=== PATIENT | female | born 1980 | race Caucasian/White ===

== ENCOUNTER 2017-02-03 21:00 | Emergency (ER) | payer OTHER ==
[~2017-02-03] VITALS: Ht 170.2 cm; Wt 110.0 kg
[2017-02-03 22:48] LABS: HEMATOCRIT 39.2 % (36.0-46.0); MCH 29.8 PG (29.0-34.0); MCHC 33.4 G/DL (30.0-36.0); MCV 89.3 FL (83-99); MEAN PLAT.VOLUME 10.5 uM^3 (9.5-12.4); PLATELET COUNT 298 K/uL (156-360); RBC DIS.WIDTH-SD 42.8 % (39-53); RED BLOOD COUNT 4.39 M/uL (3.80-5.20); WHITE BLOOD COUNT 16.9 K/uL (4.1-10.2)
[2017-02-03 22:55] LABS: CHLORIDE 105 mEq/L (99-109); POTASSIUM 3.8 mEq/L (3.7-5.4); SODIUM 135 mEq/L (136-147)
[2017-02-03 22:57] LABS: GLUCOSE 109 mg/dL (70-99)
[2017-02-03 22:59] LABS: ANION GAP 9 MEQ/L (2-14)
[2017-02-03 23:00] LABS: SERUM ETHYL ALCOHOL < 10 mg/dL
[2017-02-03 23:01] LABS: GFR ESTIMATE (CALCULATED) > 59 mL/min/
[2017-02-03 23:02] LABS: UREA NITROGEN (BUN) 10 mg/dL (9-23)
[2017-02-03 23:53] LABS: ADD MIUA? YES; BILIRUBIN NEGATIVE; BLOOD MODERATE; COLOR COLORLESS ((YELLOW)); GLUCOSE (STRIP) NEGATIVE; KETONES NEGATIVE; LEUKOCYTES NEGATIVE; NITRITE NEGATIVE; PROTEIN (STRIP) NEGATIVE; SPECIFIC GRAVITY 1.002 (1.000-1.030); UROBILINOGEN 0.2 MG/DL (0.2-1.0)
[2017-02-03 23:58] LABS: BACTERIA RARE /HPF; EPITHELIAL CELLS RARE /HPF; MUCUS NONE SEEN /LPF; RED BLOOD CELLS 0-5 /HPF (0-5); UCUL ADDED? NO; WHITE BLOOD CELLS 0-5 /HPF (0-5)
[2017-02-04 00:21] VITALS: BP 138/90
== END 2017-02-04 00:22 | disposition home or self-care (01) ==
LOC: EDBD 21:00 → EME 21:00
PROVIDERS: Emergency Medicine
DX: F41.8 Other specified anxiety disorders (principal); D72.829 Elevated white blood cell count, unspecified; T43.595A Adverse effect of other antipsychotics and neuroleptics, initial encounter; F84.0 Autistic disorder; F79 Unspecified intellectual disabilities; E78.5 Hyperlipidemia, unspecified; K21.9 Gastro-esophageal reflux disease without esophagitis
CPT/HCPCS: 80048; 81003; 85027; 90839; 99281; 99283; G0480

== ENCOUNTER 2017-02-08 13:00 | Emergency (ER) | payer OTHER ==
[~2017-02-08] VITALS: Ht 170.2 cm; Wt 110.0 kg
[2017-02-08 13:38] LABS: POINT-OF-CARE METER ID UU14100415
[2017-02-08 13:40] LABS: BASOPHIL COUNT 0.1 K/uL (0-0.1); EOSINOPHIL (%) 0.5 % (0-5); EOSINOPHIL COUNT 0.1 K/uL (0-0.3); HEMATOCRIT 38.2 % (36.0-46.0); IMMATURE GRANULOCYTE (%) 0.5 % (0.0-0.7); IMMATURE GRANULOCYTE COUNT 0.1 K/uL; LYMPHOCYTE COUNT 2.7 K/uL (1.0-2.8); MCH 30.2 PG (29.0-34.0); MCV 88.8 FL (83-99); MONOCYTE (%) 6.8 % (3-12); NEUTROPHIL (%) 73.6 % (45-76); PLATELET COUNT 315 K/uL (156-360); RBC DIS.WIDTH-CV 13.1 % (11.8-14.6); RBC DIS.WIDTH-SD 42.9 % (39-53); WHITE BLOOD COUNT 14.9 K/uL (4.1-10.2)
[2017-02-08 13:54] LABS: CHLORIDE 99 mEq/L (99-109); POTASSIUM 3.4 mEq/L (3.7-5.4); SODIUM 130 mEq/L (136-147)
[2017-02-08 13:56] LABS: GLUCOSE 118 mg/dL (70-99)
[2017-02-08 13:57] LABS: ANION GAP 10 MEQ/L (2-14)
[2017-02-08 13:58] LABS: TOTAL BILIRUBIN 0.4 mg/dL (0.0-1.0)
[2017-02-08 13:59] LABS: ALKALINE PHOSPHATASE 74 IU/L (3-129)
[2017-02-08 14:00] LABS: GFR ESTIMATE (CALCULATED) > 59 mL/min/
[2017-02-08 14:01] LABS: UREA NITROGEN (BUN) 8 mg/dL (9-23)
[2017-02-08 14:03] LABS: LIPASE 18 U/L (1.0-51.0)
[2017-02-08 14:08] LABS: ADD MIUA? YES; BILIRUBIN NEGATIVE; BLOOD MODERATE; COLOR STRAW ((YELLOW)); GLUCOSE (STRIP) NEGATIVE; KETONES NEGATIVE; LEUKOCYTES NEGATIVE; NITRITE NEGATIVE; PROTEIN (STRIP) NEGATIVE; SPECIFIC GRAVITY 1.003 (1.000-1.030); UROBILINOGEN 0.2 MG/DL (0.2-1.0)
[2017-02-08 14:09] LABS: QUANTITATIVE HCG < 4.0 MIU/ML
[2017-02-08 14:10] LABS: BACTERIA RARE /HPF; EPITHELIAL CELLS RARE /HPF; MUCUS NONE SEEN /LPF; RED BLOOD CELLS 0-5 /HPF (0-5); UCUL ADDED? NO; WHITE BLOOD CELLS NONE SEEN /HPF (0-5)
[2017-02-08] MEDS ORDERED: ENPRESSE1 EACH PO (16:55)
[2017-02-08] MEDS ORDERED: TRIVORA-281 EACH PO (16:55)
[2017-02-08] MEDS ORDERED: LISINOPRIL5 MG PO (16:56)
[2017-02-08] MEDS ORDERED: INVEGA9 M1 PO (16:57)
[2017-02-08] MEDS ORDERED: RANITIDINE HCL75 MG PO (16:57)
[2017-02-08] MEDS ORDERED: SIMVASTATIN20 MG PO (16:58)
[2017-02-08] MEDS ORDERED: METAMUCIL PACKE1 PKT PO (16:59)
[2017-02-08] MEDS ORDERED: ACETAMINOPHEN325 M3 PO (17:00)
[2017-02-08] MEDS ORDERED: NAPROSYN500 MG PO (17:01)
[2017-02-08] MEDS ORDERED: ZOFRAN4 MG PO (17:02)
[2017-02-08] MEDS ORDERED: TUSSIN CF MAX118 ML PO (17:03)
[2017-02-08] MEDS ORDERED: PEPTO BISMOL240 ML PO (17:03)
[2017-02-08 18:30] VITALS: BP 110/82
== END 2017-02-08 18:31 | disposition home or self-care (01) ==
LOC: EME 13:00
PROVIDERS: Emergency Medicine
DX: F41.9 Anxiety disorder, unspecified (principal); R45.1 Restlessness and agitation; N94.6 Dysmenorrhea, unspecified; D72.829 Elevated white blood cell count, unspecified; F84.0 Autistic disorder; F79 Unspecified intellectual disabilities
CPT/HCPCS: 71010; 74176; 80053; 81003; 82948; 83690; 84702; 85025; 99281; 99284